=== PATIENT | female | born 1990 ===

== ENCOUNTER 2018-08-07 20:47 | Emergency (ER) | payer BC ==
[~2018-08-07] VITALS: Ht 170.2 cm; Wt 113.4 kg
[2018-08-07 21:01] VITALS: BP 124/88; Ht 170.2 cm; Wt 113.4 kg
[2018-08-07] MEDS ORDERED: LAMICTAL25 MG (21:04)
== END 2018-08-08 02:25 | disposition left against medical advice (07) ==
LOC: D.ER 20:47
DX: R50.9 Fever, unspecified (principal)